=== PATIENT | female | born 1975 | race Caucasian/White ===

== ENCOUNTER 2020-04-08 13:03 | Outpatient (REF) | payer BC, SELFPAY ==
--- NOTE | ~2020-04-08 | XR_ITS ---
EXAMINATION: XR FOOT, LEFT CLINICAL INFORMATION: Pain COMPARISON: None TECHNIQUE: AP, lateral, and oblique views of the left foot. FINDINGS: There is a transverse minimally displaced fracture through the base of the fifth metatarsal bone. This is arthritic intra-articular with the fifth MTT joint. No other fracture is seen. Joint spaces are otherwise normal. There is a small 1 mm radiopaque soft tissue density in the lateral great toe adjacent to the distal phalanx. Soft tissues are otherwise unremarkable. XR/XR foot LT min 3V IMPRESSION: Minimally displaced fracture of the base of the fifth metatarsal bone. Probable small 1 mm radiopaque soft tissue foreign body in the great toe.
== END 2020-04-08 13:04 | disposition home or self-care (01) ==
LOC: HO.HMGCX 13:03
PROVIDERS: Visit Provider Hospitalist
DX: M79.672 Pain in left foot (principal)
CPT/HCPCS: 73630